=== PATIENT | male | born 1975 | race Caucasian/White ===

== ENCOUNTER 2022-05-18 20:59 | Outpatient (REF) | payer BC, SELFPAY ==
[2022-05-18 21:07] LABS: HCT 43.9 % (40.0-50.0); MCH 30.8 pg (27.0-33.0); MCHC 34.2 % (32.0-36.0); MCV 90 fL (80-95); MPV 10.5 fL (8.0-11.0); Platelet Count 321 10^3/uL (130-400); RBC 4.87 10^6/uL (4.36-5.78); RDW 11.8 % (11.8-14.1); RDW-SD 38.6 fL; WBC 7.22 10^3/uL (4.4-10.8)
[2022-05-18 21:42] LABS: ALT 33 U/L (16-63); AST 17 U/L (15-37); Albumin 4.4 g/dL (3.4-5.0); Alkaline Phosphatase 83 U/L (46-116); Anion Gap 9.5 mmol/L (3-11); BUN 15 mg/dL (7-18); Bilirubin, Total 0.3 mg/dL (0.2-1.0); CO2 29.5 mmol/L (21.0-32.0); CREATININE 0.8 mg/dL (0.70-1.30); Calcium 9.3 mg/dL (8.5-10.1); Calculated LDL 121 mg/dL (<100); Chloride 100 mmol/L (98-107); Cholesterol 218 mg/dL (<200); Estimated GFR 109.85 (mL/min/1.73m2); Glucose 97 mg/dL (74-106); HDL Cholesterol 51 mg/dL (40-60); Potassium 3.8 mmol/L (3.5-5.1); Sodium 139 mmol/L (136-145); Total Protein 7.4 g/dL (6.4-8.2); Triglyceride 232 mg/dL (<150); Vitamin B12 312 pg/mL (193-986)
[2022-05-21 06:05] LABS: Vitamin D 25 Total 38.1 ng/mL (30-100)
== END 2022-05-18 21:00 | disposition home or self-care (01) ==
LOC: NCHCN 20:59
PROVIDERS: Visit Provider Family Medicine
DX: E53.8 Deficiency of other specified B group vitamins (principal); E55.9 Vitamin D deficiency, unspecified; Z00.00 Encounter for general adult medical examination without abnormal findings
CPT/HCPCS: 80053; 80061; 82306; 85027; 82607

== ENCOUNTER 2023-05-21 20:48 | Outpatient (REF) | payer BC, SELFPAY ==
[2023-05-21 22:09] LABS: Vitamin B12 1078 pg/mL (193-986)
== END 2023-05-21 20:49 | disposition home or self-care (01) ==
LOC: NCHCN 20:48
PROVIDERS: Visit Provider Family Medicine
DX: E53.8 Deficiency of other specified B group vitamins (principal)
CPT/HCPCS: 82607

== ENCOUNTER 2025-05-27 20:45 | Outpatient (REF) | payer BC, SELFPAY ==
[2025-05-27 22:02] LABS: Anion Gap 10.2 mmol/L (3-11); BUN 17 mg/dL (7-18); CO2 26.8 mmol/L (21.0-32.0); Calcium 8.7 mg/dL (8.5-10.1); Calculated LDL 138 mg/dL (<100); Chloride 104 mmol/L (98-107); Cholesterol 210 mg/dL (<200); Estimated GFR 104.05 (mL/min/1.73m2); Glucose 98 mg/dL (74-106); HDL Cholesterol 54 mg/dL (>or=40); Potassium 4.2 mmol/L (3.5-5.1); Sodium 141 mmol/L (136-145); Triglyceride 92 mg/dL (<150); Vitamin B12 253 pg/mL (193-986); Vitamin D 25 Total 41 ng/mL (30-100)
== END 2025-05-27 20:46 | disposition home or self-care (01) ==
LOC: NCHCN 20:45
PROVIDERS: Visit Provider Family Medicine
DX: Z13.220 Encounter for screening for lipoid disorders (principal); E55.9 Vitamin D deficiency, unspecified; E53.8 Deficiency of other specified B group vitamins; Z00.00 Encounter for general adult medical examination without abnormal findings
CPT/HCPCS: 80048; 80061; 82306; 82607